=== PATIENT | female | born 1945 | race Two or more races ===

== ENCOUNTER 2021-02-04 10:30 | Inpatient (IN) | payer OTHER ==
[~2021-02-04] VITALS: Ht 170.2 cm; Wt 90.7 kg
[2021-02-04] MEDS ORDERED: XARELTO20 MG PO (11:08)
[2021-02-04] MEDS ORDERED: TOPROL XL50 M1 PO (11:08)
[2021-02-04] MEDS ORDERED: LOSARTAN-HCTZ1 EACH PO (11:08)
[2021-02-04] MEDS ORDERED: TYLENOL ARTHRI650 MG PO (11:09)
[2021-02-11] MEDS ORDERED: ARTHRITIS PAIN650 M1 (14:04)
[2021-02-11] MEDS ORDERED: REFRESH TEARS15 ML (14:04)
[2021-02-11] MEDS ORDERED: FAMOTIDINE40 MG (14:04)
[2021-02-13] MEDS ORDERED: INTESTINEX680 M1 PO (08:37)
[2021-02-13] MEDS ORDERED: QUESTRAN PACKET4 GM PO (08:38)
== END 2021-02-13 23:19 | disposition home or self-care (01) | DRG 330 ==
LOC: SURH 10:30 → O/R 02-11 07:16 → SURH 02-11 07:16
PROVIDERS: ADMIT Surgery; ATTEND Surgery
PROC: 0DBP7ZZ Excision of Rectum, Via Natural or Artificial Opening (ICD-10-PCS; 2021-02-11)
PROC: 0JQC0ZZ Repair Pelvic Region Subcutaneous Tissue and Fascia, Open Approach (ICD-10-PCS; principal; 2021-02-11 08:45)
DX: K62.3 Rectal prolapse (principal); K62.5 Hemorrhage of anus and rectum